=== PATIENT | male | born 1960 | race Two or more races ===

== ENCOUNTER → 2016-05-30 | Outpatient (CLI) | payer OTHER ==
[2016-05-30 11:02] LABS: BASO % 1 % (0-3); EOS % 3 % (0-3); HEMATOCRIT 47.8 % (39.0-53.0); HEMOGLOBIN 16.3 g/dL (13.0-17.5); LYMPH # 2.4 x10^3/uL (1.0-4.8); LYMPH % 39 % (24-48); MEAN CORPUSCULAR HEMOGLOBIN 31 pg (25-35); MEAN CORPUSCULAR HGB CONC 34 g/dL (31-37); MEAN CORPUSCULAR VOLUME 89 fL (79-100); MONO % 8 % (0-9); NEUT % 50 % (31-73); PLATELET COUNT 211 x10^3/uL (140-400); RED BLOOD COUNT 5.35 x10^6/uL (4.30-5.70); RED CELL DISTRIBUTION WIDTH 12.2 % (11.5-14.5); WHITE BLOOD COUNT 6.3 x10^3/uL (4.0-11.0)
[2016-05-30 11:16] LABS: CALCIUM 8.9 mg/dL (8.5-10.1); CHOLESTEROL/HDL RATIO 4.8; CREATININE 0.8 mg/dL (0.7-1.3); GFR 101.1; POTASSIUM 3.9 mmol/L (3.5-5.1); TOTAL BILIRUBIN 0.5 mg/dL (0.2-1.0); TOTAL PROTEIN 8.2 g/dL (6.4-8.2)
== END | disposition home or self-care (01) ==
LOC: LAB 10:36
PROVIDERS: ATTEND Internal Medicine
DX: R94.5 Abnormal results of liver function studies (principal); E78.5 Hyperlipidemia, unspecified; R53.83 Other fatigue; R63.4 Abnormal weight loss
CPT/HCPCS: 36415; 80053; 80061; 84443; 85027; G0103

== ENCOUNTER → 2017-10-17 | Outpatient (CLI) | payer OTHER ==
[2017-10-17 09:01] LABS: ALBUMIN/GLOBULIN RATIO 1.1 (1.0-1.7); ALK PHOS 107 U/L (46-116); ALT (SGPT) 59 U/L (16-63); ANION GAP 8 (6-14); AST (SGOT) 30 U/L (15-37); BLOOD UREA NITROGEN 12 mg/dL (8-26); BUN/CREATININE RATIO 15 (6-20); CARBON DIOXIDE 27 mmol/L (21-32); CHLORIDE 107 mmol/L (98-107); CHOLESTEROL 206 mg/dL (0-200); CHOLESTEROL/HDL RATIO 4.4; CREATININE 0.8 mg/dL (0.7-1.3); GFR 100.7; GLUCOSE 101 mg/dL (70-99); HDLC 47 mg/dL (40-60); LDLC 135 mg/dL (0-100); NON-HDL CHOLESTEROL 159 mg/dL (0-129); SODIUM 142 mmol/L (136-145); TOTAL BILIRUBIN 0.8 mg/dL (0.2-1.0); TOTAL PROTEIN 7.7 g/dL (6.4-8.2); TRIGLYCERIDES 122 mg/dL (0-150); VLDLC 24 mg/dL (0-40)
[2017-10-17 09:38] LABS: PROSTATE SPECIFIC ANTIGEN 2.39 ng/mL (0.00-4.00)
== END | disposition home or self-care (01) ==
LOC: LAB 08:29
DX: Z12.5 Encounter for screening for malignant neoplasm of prostate (principal); Z00.01 Encounter for general adult medical examination with abnormal findings; E78.5 Hyperlipidemia, unspecified; K76.0 Fatty (change of) liver, not elsewhere classified
CPT/HCPCS: 36415; 80053; 80061; G0103

== ENCOUNTER → 2018-09-18 | Outpatient (CLI) | payer OTHER ==
[2018-02-06 08:35] VITALS: BP 102/56
[2018-09-18 14:21] LABS: ALBUMIN 4.1 g/dL (3.4-5.0); ALBUMIN/GLOBULIN RATIO 1.1 (1.0-1.7); CREATININE 0.7 mg/dL (0.7-1.3); GFR 117.1; POTASSIUM 3.7 mmol/L (3.5-5.1); TOTAL BILIRUBIN 0.6 mg/dL (0.2-1.0); TOTAL PROTEIN 7.7 g/dL (6.4-8.2)
[2018-09-18 22:08] LABS: HEMOGLOBIN A1C 5.4 % (4.8-5.6)
== END | disposition home or self-care (01) ==
LOC: LAB 13:26
PROVIDERS: ATTEND Family Medicine
DX: E78.5 Hyperlipidemia, unspecified (principal); R73.9 Hyperglycemia, unspecified; K76.0 Fatty (change of) liver, not elsewhere classified
CPT/HCPCS: 36415; 80053; 80061; 83036

== ENCOUNTER → 2018-10-15 | Outpatient (CLI) | payer OTHER ==
[2018-02-06 08:35] VITALS: BP 102/56
--- NOTE | 2018-10-15 08:38 | RAD ---
Right upper quadrant abdominal ultrasound, 10/15/2018: HISTORY: Fatty liver The gallbladder is within normal limits in size. It contains multiple echogenic foci with posterior acoustic shadowing. The appearance is that of cholelithiasis. No definite gallbladder wall thickening or pericholecystic edema is seen. The common hepatic duct measures 2.5 mm. The liver demonstrates generalized increased echogenicity compatible with fatty change. No hepatic mass is evident. The liver measures 19 cm in craniocaudad extent at the level the right lobe. The right kidney is unremarkable. The pancreas was largely obscured by overlying bowel. IMPRESSION: 1. Cholelithiasis. 2. Increased hepatic echogenicity compatible with hepatic steatosis. Electronically signed by: Eliud Lombardi MD (10/15/2018 8:35 AM) [facility]
== END | disposition home or self-care (01) ==
LOC: US 07:47
PROVIDERS: ATTEND Family Medicine
DX: K80.20 Calculus of gallbladder without cholecystitis without obstruction (principal); K76.0 Fatty (change of) liver, not elsewhere classified
CPT/HCPCS: 76705

== ENCOUNTER → 2019-01-20 | Day surgery (SDC) | payer OTHER ==
[2018-02-06 08:35] VITALS: BP 102/56
[2019-01-20 08:40] LABS: BASO % 1 % (0-3); EOS # 0.2 x10^3/uL (0.0-0.7); EOS % 3 % (0-3); HEMATOCRIT 44.7 % (39.0-53.0); HEMOGLOBIN 15.4 g/dL (13.0-17.5); LYMPH # 2.2 x10^3/uL (1.0-4.8); LYMPH % 37 % (24-48); MEAN CORPUSCULAR HEMOGLOBIN 32 pg (25-35); MEAN CORPUSCULAR HGB CONC 35 g/dL (31-37); MEAN CORPUSCULAR VOLUME 92 fL (79-100); MONO # 0.5 x10^3/uL (0.0-1.1); MONO % 8 % (0-9); NEUT # 3.1 x10^3/uL (1.8-7.7); NEUT % 52 % (31-73); PLATELET COUNT 205 x10^3/uL (140-400); RED BLOOD COUNT 4.88 x10^6/uL (4.30-5.70); RED CELL DISTRIBUTION WIDTH 12.5 % (11.5-14.5); WHITE BLOOD COUNT 5.9 x10^3/uL (4.0-11.0)
[2019-01-20 09:06] LABS: CALCIUM 8.7 mg/dL (8.5-10.1); CREATININE 0.7 mg/dL (0.7-1.3); GFR 116.7; POTASSIUM 3.9 mmol/L (3.5-5.1)
[2019-01-20 09:12] LABS: CHOLESTEROL/HDL RATIO 4.5
[2019-01-20 22:08] LABS: TESTOSTERONE TOTAL 432 ng/dL (264-916)
== END | disposition home or self-care (01) ==
LOC: LAB 07:53
PROVIDERS: ATTEND Family Medicine
DX: N40.1 Benign prostatic hyperplasia with lower urinary tract symptoms (principal); E78.5 Hyperlipidemia, unspecified; R53.83 Other fatigue; Z12.5 Encounter for screening for malignant neoplasm of prostate
CPT/HCPCS: 36415; 80048; 80061; 84403; 85025; G0103

== ENCOUNTER → 2019-04-16 | Outpatient (CLI) | payer OTHER ==
[2018-02-06 08:35] VITALS: BP 102/56
[~2019-04-16] MED LIST: IOHEXOL 240 MG/ML 50ML VIAL. PO ONE; IOHEXOL 300 MG/ML 100ML VIAL. IV ONE
--- NOTE | 2019-04-16 10:31 | RAD ---
CT of the abdomen and pelvis with IV and oral contrast 04/16/2019 INDICATION: Hepatic steatosis. Cholelithiasis. COMPARISON STUDY: Abdominal ultrasound October 15, 2018. TECHNIQUE: Multidetector CT imaging of the abdomen and pelvis was performed after the administration of IV and enteric contrast FINDINGS: Visualized lung bases are unremarkable. The liver is low in attenuation diffusely suggesting hepatic steatosis. Multiple stones are noted within the gallbladder. The gallbladder is grossly unremarkable otherwise. Spleen, adrenal glands, and pancreas demonstrate no acute abnormality. The kidneys are normal in appearance. There is no bowel obstruction. No free fluid or free air is seen in the abdomen or pelvis. The bladder is unremarkable in appearance. The appendix is unremarkable. Bilateral spondylolysis is seen at L5 with grade 1 anterolisthesis of L5 on S1. Associated degenerative changes noted. Impression: 1. Hepatic steatosis 2. Cholelithiasis 3. No acute intra-abdominal abnormality. CT DOSING PQRS STATEMENT: One or more of the following individualized dose reduction techniques were utilized for this examination: 1. Automated exposure control 2. Adjustment of the mA and/or kV according to patient size 3. Use of iterative reconstruction technique Electronically signed by: Bennett Yuan MD (04/16/2019 10:28 AM) [facility]
== END | disposition home or self-care (01) ==
LOC: CT 07:30
PROVIDERS: ATTEND Surgery
DX: K80.20 Calculus of gallbladder without cholecystitis without obstruction (principal); K76.0 Fatty (change of) liver, not elsewhere classified; M47.816 Spondylosis without myelopathy or radiculopathy, lumbar region; M43.17 Spondylolisthesis, lumbosacral region
CPT/HCPCS: 74177; Q9966; Q9967

== ENCOUNTER 2019-04-27 07:28 | Day surgery (SDC) | payer OTHER ==
[~2019-04-27] VITALS: Ht 175.3 cm; Wt 88.0 kg
[~2019-04-27 07:28] MED LIST changes: +BISACODYL 10 MG SUPP.RECT. ONE; +BUPIVACAINE-EPI 0.5%-1:200000 MPF 30 ML VIAL. INJ ONE; +HEPARIN 1,000 UNIT in IV NORMAL SALINE 1,000 ML for SURG PERIOP IRR ONE; +HYDROmorphone 2 MG/ML VIAL IV PRN; +IBUPROFEN 200 MG TABLET. PO PRN; -IOHEXOL 240 MG/ML 50ML VIAL. PO ONE; -IOHEXOL 300 MG/ML 100ML VIAL. IV ONE; +IOHEXOL 300 MG/ML 50 ML VIAL. ONE; +IV RINGERS,LACTATED 1000ML 1,000 ML IV SCH; +MORPHINE SULFATE 2 MG/ML VIAL. IV PRN; +ONDANSETRON PF 4 MG/2 ML VIAL. IV PRN; +PROCHLORPERAZINE 10 MG/2 ML VIAL. IV PRN; +SURGICEL HEMOSTAT 2X3 EACH. ONE; +fentaNYL PF VIAL 100 MCG/2 ML VIAL IV PRN
--- NOTE | 2019-04-27 08:09 | PDOC ---
SURGICAL PROGRESS NOTE Subjective 58 yo M with recurrent issues of nausea. Imaging c/w gallstones and fatty liver, per US and CT. TO OR for laparoscopic versus open cholecystectomy with cholangiogram, liver biopsy. R/R/B/A d/w pt. Risks, including, but not limited to: bleeding, infection, damage to surrounding structures, risk of anesthesia, risk of open, risk of , risk of not resolving symptoms. He appears to understand, his questions are answered and he elects to proceed. Office note H&P reviewed and unchanged. JAYDA KEY MD Apr 27, 2019 08:09
[2019-04-27] MEDS ORDERED: fentaNYL PF VIAL 100 MCG/2 ML VIAL ONE (08:47)
[2019-04-27] MEDS ORDERED: ROCURONIUM 50 MG/5 ML VIAL. ONE (08:48)
[2019-04-27] MEDS ORDERED: LIDOCAINE 2% PF 5 ML VIAL. ONE (08:52)
[2019-04-27] MEDS ORDERED: PROPOFOL 20 ML IV ONE (08:52)
[2019-04-27] MEDS ORDERED: ONDANSETRON PF 4 MG/2 ML VIAL. ONE (08:53)
[2019-04-27] MEDS ORDERED: DEXAMETHASONE SOD PHOS 4 MG/ML VIAL ONE (08:53)
[2019-04-27] MEDS ORDERED: SEVOFLURANE 61 TO 120 MINUTES. IH ONE (09:40)
[2019-04-27] MEDS ORDERED: NEOSTIGMINE METHYLSULFATE 5 MG/5 ML SYRINGE. ONE (09:41)
[2019-04-27] MEDS ORDERED: GLYCOPYRROLATE 1 MG/5 ML VIAL. ONE (09:41)
[2019-04-27] MEDS ORDERED: ceFAZolin 2GM PREMIX 2 GM/50 ML BAG IV ONE (10:00)
--- NOTE | 2019-04-27 10:05 | PDOC4 ---
OPERATIVE NOTE Date: Date: Apr 27, 2019 Pre-Op Diagnosis: Gallstone, fatty liver disease Post-Op Diagnosis: same Procedure Performed: Laparoscopic cholecystectomy with cholangiogram, liver biopsy Surgeon: Edgardo Key Anesthesia Type: GETA plus local Blood Loss: 50 Specimans Obtained: gallbladder, liver biopsy Findings: fatty, friable liver, normal viscera, gallbladder normal but large node of yolis (including with specimen), normal cholangiogram Complications: none Operative Note: After obtaining informed consent, patient was taken to OR, induced under GETA and prepped in the usual fashion. 5 mm port placed umbilical and RUQ, 12 port placed epigastric, all under laparoscopic guidance. Abdominal cavity was explored and otherwise unremarkable. Endoshears used to excise 1 cubic cm of liver and sent to pathology. Hemostasis obtained with cautery. Gallbladder was grasped and triangle of calot exposed. Cystic artery ligated with clips. Critical view obtained. Cholangiogram obtained via cystic duct and was normal. Cystic duct ligated with clips and hemolok. Gallbladder taken off fossa using cautery. Gallbladder placed in bag, delivered and sent to pathology for evaluation. Copious irrigation. No evidence of bleeding or other pathology noted. Ports removed without bleeding. Fascia repaired with 0 vicryl. Skin repaired with 4 0 monocryl. Dressing placed. Patient tolerated procedure well and sent to PACU in stable condition. All counts correct. JAYDA KEY MD Apr 27, 2019 10:05
[2019-04-27] MEDS: fentaNYL PF VIAL 100 MCG/2 ML VIAL IV PRN ×2 (10:16→10:44)
[2019-04-27] MEDS ORDERED: HYDR-3164 PO (10:23)
[2019-04-27] MEDS ORDERED: DOCU-109 PO (10:24)
[2019-04-27] MEDS ORDERED: HYDROcodone/APAP 5/325MG 1 TAB TABLET PO ONE (10:45)
[2019-04-27 11:22] VITALS: BP 121/88
--- NOTE | 2019-04-27 11:29 | RAD ---
Intraoperative fluoroscopic support 04/27/2019 INDICATION: Intraoperative cholangiogram Discussion: Intraoperative fluoroscopic support was provided. Static images are submitted to PACS. These demonstrate opacification of the biliary tree without filling defect, and contrast filling of the duodenum. No gross abnormalities are identified. For operative notes for intraprocedural image findings, an operative details. Fluoroscopy time: 11 seconds. Exposures: 2 Impression: Intraoperative fluoroscopic support was provided Electronically signed by: Bennett Yuan MD (04/27/2019 11:26 AM) [facility]
--- NOTE | 2019-04-28 17:06 | PATHOLOGY ---
[facility] Accession Number: [id number] . 01 Material submitted: . PART A: gallbladder - GALLBLADDER AND CONTENTS PART B: liver - LIVER BIOPSY . 01 Clinical history: . Gallstone, fatty liver . 01 Frozen section diagnosis: . . . . . /QMS . 02 Diagnosis: A. Gallbladder, cholecystectomy: - Cholelithiasis. - Chronic and focal early acute cholecystitis. . B. Liver tissue, wedge biopsy: - Steatosis - final diagnosis pending consultation. . (JPM:kasi; 04/28/2019) QMS 04/28/2019 1408 Local . 02 Comment: The liver biopsy shows prominent steatosis with portal and focal lobular inflammation. The final diagnoses are pending consultation with Dr. Harper, who has a special interest in hepatic pathology. This will be the subject of an addendum report. . (JPM:kasi; 04/28/2019) . . Special stains performed: Trichrome, retic iron, PAS, and PAS with diastase all on B1. . 02 Electronically signed: . Panchito Berger MD, Pathologist NPI- [id number] . 01 Gross description: . A. The specimen is received in formalin, labeled "Dionicio Burnham, gallbladder and contents". Received is an intact gallbladder measuring 10.4 x 3.2 x 3.0 cm in greatest dimensions displaying a pink-purple serosal surface. Opening the specimen reveals a velvety, pink-vivar, bile-stained mucosa with a gallbladder wall thickness of 0.1 cm. Calculi are present displaying a yellow-vivar to black and multifaceted appearance, and no masses or lesions are noted grossly. Candle Wrapper sections, to include the proximal margin, are submitted in cassette A1. . B. The specimen is received in formalin, labeled "Dionicio Burnham, liver biopsy". Received is a segment of orange-vivar liver tissue measuring 1.2 x 1.2 x 0.8 cm in greatest dimensions. Sectioning reveals light vivar to orange-vivar cut surfaces. The specimen is submitted entirely in cassette B1. (CAA; 04/27/2019) QAC/QAC 04/28/2019 1406 Local . 02 Pathologist provided ICD-10: K80.12, K76.0 . 02 CPT . 781328, 092006 Specimen Comment: A courtesy copy of this report has been sent to [phone], [phone] Specimen Comment: [id number] Specimen Comment: Report sent to and Performed at: 01 [facility] [address] [facility] [address], [place] [id number] MD Blaise Arce MD Phone: [phone] Performed at: [facility] [address], [place] [id number] MD Panchito Berger MD Phone: [phone]
== END 2019-04-27 11:42 | disposition home or self-care (01) ==
LOC: SURG 07:28
PROVIDERS: ATTEND Surgery
DX: K80.12 Calculus of gallbladder with acute and chronic cholecystitis without obstruction (principal); E78.00 Pure hypercholesterolemia, unspecified; G47.30 Sleep apnea, unspecified; Z87.891 Personal history of nicotine dependence; Z86.010 Personal history of colon polyps; Z72.89 Other problems related to lifestyle; Z85.828 Personal history of other malignant neoplasm of skin
CPT/HCPCS: 47563; 74300; 88304; 88307; 88313; A7015; J0696; J1100; J1644; J2001; J2405; J2704; J2710; J3010; J3490; J7030; J7120; Q9967

== ENCOUNTER → 2019-07-22 | Outpatient (CLI) | payer OTHER ==
[~2019-07-22] MED LIST changes: -BISACODYL 10 MG SUPP.RECT. ONE; -BUPIVACAINE-EPI 0.5%-1:200000 MPF 30 ML VIAL. INJ ONE; +DOCU-109 PO; -HEPARIN 1,000 UNIT in IV NORMAL SALINE 1,000 ML for SURG PERIOP IRR ONE; +HYDR-3164 PO; -HYDROmorphone 2 MG/ML VIAL IV PRN; -IBUPROFEN 200 MG TABLET. PO PRN; -IOHEXOL 300 MG/ML 50 ML VIAL. ONE; -IV RINGERS,LACTATED 1000ML 1,000 ML IV SCH; -MORPHINE SULFATE 2 MG/ML VIAL. IV PRN; -ONDANSETRON PF 4 MG/2 ML VIAL. IV PRN; -PROCHLORPERAZINE 10 MG/2 ML VIAL. IV PRN; -SURGICEL HEMOSTAT 2X3 EACH. ONE; -fentaNYL PF VIAL 100 MCG/2 ML VIAL IV PRN
[2019-07-22 09:12] LABS: BASO % 1 % (0-3); EOS # 0.2 x10^3/uL (0.0-0.7); EOS % 3 % (0-3); HEMATOCRIT 44.6 % (39.0-53.0); HEMOGLOBIN 15.2 g/dL (13.0-17.5); LYMPH # 1.9 x10^3/uL (1.0-4.8); LYMPH % 34 % (24-48); MEAN CORPUSCULAR HEMOGLOBIN 31 pg (25-35); MEAN CORPUSCULAR HGB CONC 34 g/dL (31-37); MEAN CORPUSCULAR VOLUME 91 fL (79-100); MONO # 0.4 x10^3/uL (0.0-1.1); MONO % 7 % (0-9); NEUT # 3.1 x10^3/uL (1.8-7.7); NEUT % 55 % (31-73); PLATELET COUNT 194 x10^3/uL (140-400); RED BLOOD COUNT 4.91 x10^6/uL (4.30-5.70); RED CELL DISTRIBUTION WIDTH 12.5 % (11.5-14.5); WHITE BLOOD COUNT 5.6 x10^3/uL (4.0-11.0)
[2019-07-22 09:18] LABS: ALBUMIN 3.8 g/dL (3.4-5.0); ALBUMIN/GLOBULIN RATIO 1.1 (1.0-1.7); CALCIUM 8.5 mg/dL (8.5-10.1); CREATININE 0.7 mg/dL (0.7-1.3); GFR 116.7; TOTAL BILIRUBIN 0.4 mg/dL (0.2-1.0); TOTAL PROTEIN 7.2 g/dL (6.4-8.2)
[2019-07-22 09:20] LABS: CHOLESTEROL/HDL RATIO 4.7
[2019-07-24 00:44] LABS: FECAL OB PT NEGATIVE (NEG)
== END | disposition home or self-care (01) ==
LOC: LAB 08:30
PROVIDERS: ATTEND Family Medicine
DX: Z12.11 Encounter for screening for malignant neoplasm of colon (principal); N40.1 Benign prostatic hyperplasia with lower urinary tract symptoms; E78.5 Hyperlipidemia, unspecified; K76.0 Fatty (change of) liver, not elsewhere classified; R53.83 Other fatigue
CPT/HCPCS: 36415; 80053; 80061; 82274; 85025; G0103

== ENCOUNTER → 2020-06-29 | Outpatient (CLI) | payer OTHER ==
[2020-06-29 15:11] LABS: BASO # 0.1 x10^3/uL (0.0-0.2); BASO % 1 % (0-3); EOS # 0.2 x10^3/uL (0.0-0.7); EOS % 2 % (0-3); HEMOGLOBIN 15.4 g/dL (13.0-17.5); LYMPH # 2.5 x10^3/uL (1.0-4.8); LYMPH % 38 % (24-48); MEAN CORPUSCULAR HEMOGLOBIN 31 pg (25-35); MEAN CORPUSCULAR HGB CONC 34 g/dL (31-37); MEAN CORPUSCULAR VOLUME 91 fL (79-100); MONO # 0.5 x10^3/uL (0.0-1.1); MONO % 7 % (0-9); NEUT # 3.4 x10^3/uL (1.8-7.7); NEUT % 52 % (31-73); PLATELET COUNT 197 x10^3/uL (140-400); RED BLOOD COUNT 4.96 x10^6/uL (4.30-5.70); RED CELL DISTRIBUTION WIDTH 12.8 % (11.5-14.5); WHITE BLOOD COUNT 6.6 x10^3/uL (4.0-11.0)
[2020-06-29 15:33] LABS: ALBUMIN 3.9 g/dL (3.4-5.0); ALBUMIN/GLOBULIN RATIO 1.1 (1.0-1.7); CHOLESTEROL/HDL RATIO 4.4; CREATININE 0.7 mg/dL (0.7-1.3); GFR 116.2; POTASSIUM 3.6 mmol/L (3.5-5.1); TOTAL BILIRUBIN 0.6 mg/dL (0.2-1.0); TOTAL PROTEIN 7.6 g/dL (6.4-8.2)
== END ==
LOC: LAB 14:42
PROVIDERS: ATTEND Family Medicine
DX: Z12.5 Encounter for screening for malignant neoplasm of prostate (principal); E78.5 Hyperlipidemia, unspecified; N40.1 Benign prostatic hyperplasia with lower urinary tract symptoms; R53.83 Other fatigue
CPT/HCPCS: 36415; 80053; 80061; 85025; G0103

== ENCOUNTER → 2020-10-02 | Outpatient (CLI) | payer OTHER | LOC: LAB 10:07 | PROVIDERS: ATTEND Family Medicine | DX: E78.5 Hyperlipidemia, unspecified (principal) | CPT/HCPCS: 36415; 80061; 84460 ==